=== PATIENT | male | born 2000 | race Caucasian/White ===

== ENCOUNTER 2020-09-14 17:57 | Outpatient (REF) | payer OTHER, SELFPAY | END 2020-09-14 17:58 | disposition home or self-care (01) | LOC: HO.LNP 17:57 | PROVIDERS: Visit Provider Nurse Practitioner Family | DX: R19.7 Diarrhea, unspecified (principal) | CPT/HCPCS: 87635 ==

== ENCOUNTER 2021-01-09 14:24 | Outpatient (REF) | payer OTHER, SELFPAY | END 2021-01-09 14:25 | disposition home or self-care (01) | LOC: HO.HMGCLDS 14:24 | PROVIDERS: Visit Provider Internal Medicine | DX: Z20.822 Contact with and (suspected) exposure to COVID-19 (principal) | CPT/HCPCS: 36415; C9803; U0003; U0005 ==